=== PATIENT | male | born 1950 | race Caucasian/White ===

== ENCOUNTER 2018-10-30 16:13 | Outpatient (CLI) | payer BC ==
[2018-10-30 17:03] LABS: BASOPHILS # (AUTO) 0.1 X10'3 (0-0.2); BASOPHILS % (AUTO) 0.7 % (0-1); EOSINOPHILS # (AUTO) 0.1 X10'3 (0-0.9); EOSINOPHILS % (AUTO) 1.3 % (0-6); HEMATOCRIT 51.2 % (42.0-52.0); HEMOGLOBIN 17.5 g/dl (14.0-17.9); LYMPHOCYTES # (AUTO) 1.1 X10'3 (1.1-4.8); LYMPHOCYTES % (AUTO) 13.6 % (21-51); MEAN CORPUSCULAR HEMOGLOBIN 31.4 PG (27.0-31.0); MEAN CORPUSCULAR HGB CONC 34.3 g/dL (33.0-36.5); MEAN CORPUSCULAR VOLUME 91.5 FL (78-98); MEAN PLATELET VOLUME 7.4 FL (7.4-10.4); MONOCYTES # (AUTO) 0.7 X10'3 (0-0.9); MONOCYTES % (AUTO) 9.1 % (2-12); NEUTROPHILS # (AUTO) 6.2 X10'3 (1.8-7.7); NEUTROPHILS % (AUTO) 75.3 % (42-75); PLATELET COUNT 293 X10'3 (140-440); RED BLOOD COUNT 5.59 X10'6 (4.70-6.10); WHITE BLOOD COUNT 8.2 X10'3 (4.5-11.0)
[2018-10-30 17:05] LABS: ALBUMIN 3.7 G/DL (3.4-5.0); ANION GAP 8 (8-16); BLOOD UREA NITROGEN 25 MG/DL (7-18); CALCIUM 8.8 MG/DL (8.5-10.1); CHLORIDE 105 MMOL/L (99-107); CREATININE 1.39 MG/DL (0.60-1.10); GLUCOSE 119 MG/DL (70-104); POTASSIUM 4.3 MMOL/L (3.5-5.1); SODIUM 141 MMOL/L (135-145); TOTAL CARBON DIOXIDE 28.3 MMOL/L (24-32); eGFR 51 ML/MIN
[2018-10-30 17:09] LABS: INR 1.1 INR; PARTIAL THROMBOPLASTIN TIME 27 SECONDS (22-32); PROTHROMBIN TIME 10.7 SECONDS (9.0-12.0)
== END 2018-10-30 23:59 | disposition home or self-care (01) ==
LOC: LAB 16:13
PROVIDERS: ATTEND Internal Medicine Cardiovascular Disease
DX: R06.02 Shortness of breath (principal); R94.31 Abnormal electrocardiogram [ECG] [EKG]; Z87.891 Personal history of nicotine dependence
CPT/HCPCS: 36415; 80048; 85025; 85610; 85730

== ENCOUNTER 2018-11-01 10:03 | Day surgery (SDC) | payer BC ==
[~2018-11-01] VITALS: Ht 177.8 cm; Wt 92.4 kg
[2018-11-01] VITALS (10 sets, daily range): BP systolic 129–179; BP diastolic 66–107
[2018-11-01] MEDS ORDERED: sodium bicarbonate (8.4%) inj. 150 ML in dextrose 5%-water 1,000 ML IV ONE (10:30)
[2018-11-01] MEDS ORDERED: diphenhydrAMINE 25mg capsule PO PRN (10:30)
[2018-11-01] MEDS ORDERED: LIDOcaine/PRILOcaine 5gm cream TP ONE (10:30)
[2018-11-01] MEDS ORDERED: LORazepam 0.5 MG tablet PO PRN (10:30)
[2018-11-01] MEDS ORDERED: acetylcysteine 200 MG/ml 4ml vial PO PRN (10:30)
[2018-11-01] MEDS ORDERED: ASPI-1264 PO (11:45)
[2018-11-01] MEDS ORDERED: ACET600C PO (11:45)
[2018-11-01] MEDS ORDERED: METO25TA6 PO (11:45)
[2018-11-01] MEDS ORDERED: ATOR20TA PO (11:45)
[2018-11-01] MEDS ORDERED: ISOS30TA9 PO (11:45)
[2018-11-01] MEDS ORDERED: LIDOcaine 1% (10mg/ml)w/preservative injection 20ml MDV ONE (12:15)
[2018-11-01] MEDS ORDERED: iohexol 350MG/ML 100ml bottle IV ONE ×2 (12:15→13:20)
[2018-11-01] MEDS ORDERED: nitroGLYCERIN-Tridil 50MG/D5W 250 ML IV ONE (12:15)
[2018-11-01] MEDS ORDERED: iohexol 350 MG/ML 50ML vial IV ONE (12:15)
[2018-11-01] MEDS ORDERED: heparin 1,000unit/ml 10ml vial 10 ML ONE (12:16)
[2018-11-01] MEDS ORDERED: fentaNYL/PF 50MCG/1 ML 2ML syringe ONE (12:16)
[2018-11-01] MEDS ORDERED: midazolam 2 mg/2 ml injection ONE (12:16)
[2018-11-01] MEDS ORDERED: verapamil 2.5 mg/ml inj IV ONE (12:17)
[2018-11-01 15:11] LABS: ISTAT Hct MIX 44 %PCV (42-52); ISTAT O2 SATURATION MIX VENOUS 69 % (60-80); ISTAT SOURCE MIX
[2018-11-01 15:11] LABS: ISTAT HGB ART 15.3 g/dl (14.0-18.0); ISTAT Hct ART 45 %PCV (42-52); ISTAT O2 SATURATION ARTERIAL 97 % (95-98); ISTAT SOURCE ART
== END 2018-11-01 18:45 | disposition home or self-care (01) ==
LOC: SSTAY O 10:03
PROVIDERS: ATTEND Internal Medicine Cardiovascular Disease
DX: I25.119 Atherosclerotic heart disease of native coronary artery with unspecified angina pectoris (principal); E78.5 Hyperlipidemia, unspecified; N18.9 Chronic kidney disease, unspecified; I35.1 Nonrheumatic aortic (valve) insufficiency; I77.819 Aortic ectasia, unspecified site; Z79.82 Long term (current) use of aspirin; Z79.899 Other long term (current) drug therapy; Z82.49 Family history of ischemic heart disease and other diseases of the circulatory system; Z87.891 Personal history of nicotine dependence; Z80.9 Family history of malignant neoplasm, unspecified
CPT/HCPCS: 82803; 85014; 93005; 93460; 93567; 99152; 99153; J1644; J2001; J2250; J3010; Q0163; Q9967; A4620; C1769; J3490